=== PATIENT | female | born 1965 | race Asian ===

== ENCOUNTER 2018-08-22 07:19 | Day surgery (SDC) | payer MEDICARE, BC ==
[~2018-08-22 07:19] MED LIST: KETOROLAC TROMETHAMINE 0.45% 4 DROP/0.4 ML DROPERETTE OD PRN
[2018-08-22] MEDS ORDERED: MIDAZOLAM 2 MG/2 ML INJ ONE (07:22)
[2018-08-22] MEDS ORDERED: LIDOCAINE 1% INJ-PF (10 MG/ML) 30 ML SDV ONE (07:27)
[2018-08-22] MEDS: TROPICAMIDE 1% OPH SOLN 3 ML OD PRN ×3 (08:13→08:32)
[2018-08-22] MEDS: TETRACAINE HCL 0.5% OPH SOLN 4 ML OD PRN ×3 (08:13→08:34)
[2018-08-22] MEDS: BESIFLOXACIN HCL 0.6% OPH SUSP 5 ML BOTTLE OD PRN ×4 (08:13→08:53)
[2018-08-22] MEDS: CYCLOPENTOLATE 0.2%/PHENYLEPHRINE 1% OPH SOLN 2 ML OD PRN ×3 (08:13→08:32)
[2018-08-22] MEDS: LIDOCAINE 1%/PHENYLEPHRINE 1.5% 1 ML VIAL ONE ×2 (08:39→08:43)
[2018-08-22] MEDS: EPINEPHRINE INJ/PF 1 MG/1 ML AMPULE ONE ×2 (08:40→08:43)
[2018-08-22] MEDS: CHONDR SU A NA/HYALUR INTRAOC KIT (SURGICARE) ONE ×2 (08:41→08:43)
--- NOTE | 2018-08-23 12:17 | [facility] DISCHARGE SUMMARY E ---
[facility] Discharge Summary NAME: MARY LIAO AGE: 53Y ADMITTED: 08/22/2018 DISCHARGED: 08/22/2018 HISTORY: This is a 53-year-old female who underwent cataract extraction of the right eye. DIAGNOSIS: Cataract, right eye. HOSPITAL COURSE: She underwent surgery because she was having difficulty reading small print. DISCHARGE INSTRUCTIONS: She should be on a regular diet. No bending at her waist. No heavy lifting. She should use her Vigamox, Predforte, and Ketorolac at 3 p.m. and 8 p.m. and sleep with a rigid shield, and I will see her for a 1 day postoperative tomorrow. DICTATING PHYSICIAN: MARIANNA COSTA M.D. [id number] PHY#: [id number] 2015 ID: [id number] JOB#: [id number] ACCT: [id number] cc:MARIANNA COSTA M.D. >
--- NOTE | 2018-08-23 12:17 | [facility] OPERATIVE REPORT E ---
[facility] Operative Report NAME: MARY LIAO AGE: 53Y DATE OF SURGERY: 08/22/2018 ROOM: PREOPERATIVE DIAGNOSIS: CATARACT, RIGHT EYE. POSTOPERATIVE DIAGNOSIS: CATARACT, RIGHT EYE. OPERATION: Cataract extraction with insertion of an IOL of the right eye. SURGEON: MARIANNA COSTA M.D. ANESTHESIA: Topical. PROCEDURE: After obtaining appropriate consent, the patient's right eye was prepped and draped in sterile fashion as well as the surgeon in a sterile manner and cataract surgery was started. First a paracentesis blade was used to make a side-port incision. Viscoelastic was used to inflate the anterior chamber. Next a 2.4 mm incision was made with a 2.4 mm blade, clear corneal temporally. A continuous capsulorrhexis was made using a cystotome and Utrata forceps. Following this hydrodissection was carried out to make the lens fully loose and mobile and it was rotated 90 degrees. Following this, a zupsmj-xbs-dwjdehk technique was used to phacoemulsify the lens with a CDE of 6.99. The remaining cortex was removed with irrigation/aspiration. Provisc was instilled into the capsular bag to inflate the bag. A SN60WF, 14.0 diopter lens was placed. The remaining viscoelastic material was removed with irrigation/aspiration. Following this, the incision was found to be watertight. Besivance was instilled into the eye and a protective shield was placed over the eye. The patient returned to the postoperative recovery in stable condition. DICTATING PHYSICIAN: AMRIANNA COSTA M.D. [id number] PHY#: [id number] 2015 ID: [id number] JOB#: [id number] ACCT: [id number] cc:MARIANNA COSTA M.D. >
== END 2018-08-22 09:41 | disposition home or self-care (01) ==
LOC: SC 07:19
PROVIDERS: ATTEND Internal Medicine
DX: H25.813 Combined forms of age-related cataract, bilateral (principal); H53.022 Refractive amblyopia, left eye; H04.123 Dry eye syndrome of bilateral lacrimal glands; E11.9 Type 2 diabetes mellitus without complications; E78.00 Pure hypercholesterolemia, unspecified; J45.909 Unspecified asthma, uncomplicated; M19.90 Unspecified osteoarthritis, unspecified site; Z87.891 Personal history of nicotine dependence; K21.9 Gastro-esophageal reflux disease without esophagitis; I48.91 Unspecified atrial fibrillation; I11.0 Hypertensive heart disease with heart failure; I50.9 Heart failure, unspecified; Z79.899 Other long term (current) drug therapy; Z79.82 Long term (current) use of aspirin; Z79.51 Long term (current) use of inhaled steroids; Z95.0 Presence of cardiac pacemaker; Z79.4 Long term (current) use of insulin
CPT/HCPCS: 66984; 82962; V2632; J2250; J3490 ×2; A9270; J0171; J2370; 142

== ENCOUNTER 2018-09-19 07:52 | Day surgery (SDC) | payer MEDICARE, BC ==
[~2018-09-19 07:52] MED LIST changes: -KETOROLAC TROMETHAMINE 0.45% 4 DROP/0.4 ML DROPERETTE OD PRN; +KETOROLAC TROMETHAMINE 0.45% 4 DROP/0.4 ML DROPERETTE OS PRN; +LIDOCAINE 1% INJ-PF (10 MG/ML) 30 ML SDV ONE
[2018-09-19] MEDS: TROPICAMIDE 1% OPH SOLN 3 ML OS PRN ×3 (08:28→08:51)
[2018-09-19] MEDS: CYCLOPENTOLATE 0.2%/PHENYLEPHRINE 1% OPH SOLN 2 ML OS PRN ×3 (08:28→08:51)
[2018-09-19] MEDS: BESIFLOXACIN HCL 0.6% OPH SUSP 5 ML BOTTLE OS PRN ×4 (08:29→09:23)
[2018-09-19] MEDS: TETRACAINE HCL 0.5% OPH SOLN 4 ML OS PRN ×3 (08:30→09:00)
[2018-09-19] MEDS ORDERED: MIDAZOLAM 2 MG/2 ML INJ ONE (08:46)
[2018-09-19] MEDS ORDERED: FENTANYL CITRATE INJ/PF 100 MCG/2 ML AMPUL ONE (08:47)
[2018-09-19] MEDS: EPINEPHRINE INJ/PF 1 MG/1 ML AMPULE ONE ×2 (09:11)
[2018-09-19] MEDS: LIDOCAINE 1%/PHENYLEPHRINE 1.5% 1 ML VIAL ONE ×2 (09:11)
[2018-09-19] MEDS: CHONDR SU A NA/HYALUR INTRAOC KIT (SURGICARE) ONE ×2 (09:11)
[2018-09-19] MEDS: DORZOLAMIDE HCL 2%/TIMOLOL MALEAT 0.5% OPH SOLN 10 ML OS PRN ×2 (09:23)
--- NOTE | 2018-09-19 21:13 | [facility] OPERATIVE REPORT E ---
[facility] Operative Report NAME: MARY LIAO AGE: 53Y DATE OF SURGERY: 09/19/2018 ROOM: PREOPERATIVE DIAGNOSIS: CATARACT, LEFT EYE. POSTOPERATIVE DIAGNOSIS: CATARACT, LEFT EYE. OPERATION: Cataract extraction with insertion of an IOL of the left eye. SURGEON: MARIANNA COSTA M.D. ANESTHESIA: Topical. PROCEDURE: After obtaining appropriate consent, the patient's left eye was prepped and draped in sterile fashion as well as the surgeon in a sterile manner and cataract surgery was started. First a paracentesis blade was used to make a side-port incision. Viscoelastic was used to inflate the anterior chamber. Next a 2.4 mm incision was made with a 2.4 mm blade, clear corneal temporally. A continuous capsulorrhexis was made using a cystotome and Utrata forceps. Following this hydrodissection was carried out to make the lens fully loose and mobile and it was rotated 90 degrees. Following this, a fcwjfp-njj-vvvwvma technique was used to phacoemulsify the lens with a CDE of 7.43. The remaining cortex was removed with irrigation/aspiration. Provisc was instilled into the capsular bag to inflate the bag. A SN60WF, 13.5 diopter lens was placed. The remaining viscoelastic material was removed with irrigation/aspiration. Following this, the incision was found to be watertight. Besivance was instilled into the eye and a protective shield was placed over the eye. The patient returned to the postoperative recovery in stable condition. DICTATING PHYSICIAN: MARIANNA COSTA M.D. [id number] PHY#: [id number] ID: [id number] JOB#: [id number] ACCT: [id number] cc:MARIANNA COSTA M.D. >
--- NOTE | 2018-09-19 21:18 | [facility] DISCHARGE SUMMARY E ---
[facility] Discharge Summary NAME: MARY LIAO AGE: 53Y ADMITTED: 09/19/2018 DISCHARGED: 09/19/2018 FINAL DIAGNOSIS: Cataract, left eye. HOSPITAL COURSE: This is a 53-year-old female who underwent cataract extraction of the left eye. Underwent surgery because she was having difficulty seeing road signs and words on the television. DISCHARGE INSTRUCTIONS: She should be on a regular diet. No bending at her waist, no heavy lifting. She should use Vigamox, ketorolac and Pred-Forte at 3:00 p.m. and 8:00 p.m. Sleep with a rigid shield. I will see her for a 1-day postoperative tomorrow. DICTATING PHYSICIAN: MARIANNA COSTA M.D. [id number] PHY#: [id number] ID: [id number] JOB#: [id number] ACCT: [id number] cc:MARIANNA COSTA M.D. >
== END 2018-09-19 10:04 | disposition home or self-care (01) ==
LOC: SC 07:52
PROVIDERS: ATTEND Internal Medicine
DX: H25.812 Combined forms of age-related cataract, left eye (principal); Z96.1 Presence of intraocular lens; E11.9 Type 2 diabetes mellitus without complications; I11.0 Hypertensive heart disease with heart failure; I50.9 Heart failure, unspecified; K21.9 Gastro-esophageal reflux disease without esophagitis; G47.30 Sleep apnea, unspecified; Z79.82 Long term (current) use of aspirin; Z79.899 Other long term (current) drug therapy; Z79.51 Long term (current) use of inhaled steroids; Z95.0 Presence of cardiac pacemaker
CPT/HCPCS: 66984; 82962; V2632; J2250; J3490 ×2; A9270; J0171; J3010; J2370; 142

== ENCOUNTER 2020-02-04 14:32 | Emergency (ER) | payer MEDICARE, BC ==
--- NOTE | 2020-02-04 14:42 | ER Document Report ---
ED Medical Screen (RME) - General Chief Complaint: S/S of Possible Stroke Stated Complaint: LEFT LEG NUMBNESS Time Seen by Provider: 02/04/20 14:38 Primary Care Provider: LUCRECIA CHAVEZ MD [Primary Care Provider] - Follow up as needed Notes: Patient is a 54-year-old female with a history of diabetes who presents to the emergency department with a chief complaint of right leg numbness. Patient states that her symptoms started yesterday afternoon. States that the numbness has gotten progressively worse throughout the day. She woke up this morning and still had the right leg numbness. Exam: Normal strength in bilateral upper and lower extremities. I have greeted and performed a rapid initial assessment of this patient. A comprehensive ED assessment and evaluation of the patient, analysis of test res ults and completion of medical decision making process will be conducted by an additional ED providers. TRAVEL OUTSIDE OF THE [place] IN LAST 30 DAYS: No - Related Data Allergies/Adverse Reactions: No Known Allergies Allergy (Verified 08/22/18 08:16) Past Medical History - Past Medical History Cardiac Medical History: Reports: Hx Congestive Heart Failure, Hx Hypercholesterolemia, Hx Hypertension Denies: Hx Heart Attack Pulmonary Medical History: Reports: Hx Asthma, Hx Pneumonia Denies: Hx Tuberculosis Neurological Medical History: Denies: Hx Cerebrovascular Accident, Hx Seizures GI Medical History: Reports: Hx Gastroesophageal Reflux Disease. Denies: Hx Hepatitis, Hx Hiatal Hernia, Hx Ulcer Psychiatric Medical History: Reports: Hx Depression Infectious Medical History: Denies: Hx Hepatitis Past Surgical History: Reports: Hx Hysterectomy, Hx Pacemaker. Denies: Hx Mastectomy, Hx Open Heart Surgery - Immunizations Hx Diphtheria, Pertussis, Tetanus Vaccination: No Doctor's Discharge - Discharge Referrals: LUCRECIA CHAVEZ MD [Primary Care Provider] - Follow up as needed
--- NOTE | 2020-02-04 15:30 | RADIOLOGY REPORT (SQ) ---
EXAM DESCRIPTION: CT HEAD WITHOUT IMAGES COMPLETED DATE/TIME: 02/04/2020 3:03 pm REASON FOR STUDY: right leg numbness COMPARISON: None. TECHNIQUE: Axial images acquired through the brain without intravenous contrast. Images reviewed wi th bone, brain and subdural windows. Images stored on PACS. All CT scanners at this facility use dose modulation, iterative reconstruction, and/or weight based d osing when appropriate to reduce radiation dose to as low as reasonably achievable (ALARA). [facility]: Dose Right [facility]: CareDose [facility]: Dose Right [facility]: Teradose 4D [facility]: [employer] RADIATION DOSE: CT Rad equipment meets quality standard of care and radiation dose reduction techniq ues were employed. CTDIvol: 53.2 mGy. DLP: 1097 mGy-cm. mGy. LIMITATIONS: None. FINDINGS: VENTRICLES: Normal size and contour. CEREBRUM: No masses. No hemorrhage. No midline shift. No evidence for acute infarction. Normal gra y/white matter differentiation. No areas of low density in the white matter. CEREBELLUM: No masses. No hemorrhage. No alteration of density. No evidence for acute infarction. EXTRAAXIAL SPACES: No fluid collections. No masses. ORBITS AND GLOBE: No intra- or extraconal masses. Normal contour of globe without masses. CALVARIUM: No fracture. PARANASAL SINUSES: No fluid or mucosal thickening. SOFT TISSUES: No mass or hematoma. OTHER: No other significant finding. IMPRESSION: NORMAL BRAIN CT WITHOUT CONTRAST. EVIDENCE OF ACUTE STROKE: NO. COMMENT: Quality ID # [id number]: Final reports with documentation of one or more dose reduction techniques (e.g., Automated exposure control, adjustment of the mA and/or kV according to patient size, use of iterative reconstruction technique) TECHNICAL DOCUMENTATION: JOB ID: [id number] 2010 [employer]- All Rights Reserved Reading location - IP/workstation name: [email or web address]
[2020-02-04 15:44] LABS: ABSOLUTE BASOPHILS # (AUTO) 0.1 10^3/uL (0.0-0.2); ABSOLUTE EOSINOPHILS # (AUTO) 0.1 10^3/uL (0.0-0.6); ABSOLUTE LYMPHOCYTES (AUTO) 2.3 10^3/uL (0.5-4.7); ABSOLUTE MONOCYTES (AUTO) 0.5 10^3/uL (0.1-1.4); ABSOLUTE NEUT (AUTO) 4.5 10^3/uL (1.7-8.2); BASOPHILS % (AUTO) 0.8 % (0-2); EOSINOPHILS % (AUTO) 1.9 % (0-6); HEMATOCRIT 41.3 % (36.0-47.0); HEMOGLOBIN 13.6 g/dL (12.0-15.5); LYMPHOCYTES % (AUTO) 30.4 % (13-45); MEAN CORPUSCULAR HEMOGLOBIN 29.8 pg (27.0-33.4); MEAN CORPUSCULAR VOLUME 90 fl (80-97); MONOCYTES % (AUTO) 6.8 % (3-13); PLATELET COUNT 249 10^3/uL (150-450); RED BLOOD COUNT 4.57 10^6/uL (3.72-5.28); RED CELL DISTRIBUTION WIDTH 13.6 % (11.5-14.0); SEGMENTED NEUTROPHILS % (AUTO) 60.1 % (42-78); TOTAL CELLS COUNTED % (AUTO) 100 %; WHITE BLOOD COUNT 7.5 10^3/uL (4.0-10.5)
[2020-02-04 15:51] LABS: INTERNATIONAL RATION (INR) 0.86; PARTIAL THROMBOPLASTIN TIME 24.2 SEC (23.5-35.8); PROTHROMBIN TIME 11.7 SEC (11.4-15.4)
[2020-02-04 16:00] LABS: ALBUMIN 4.2 g/dL (3.5-5.0); ALKALINE PHOSPHATASE 134 U/L (38-126); ANION GAP 8 (5-19); ASPARTATE AMINO TRANSFERASE 75 U/L (14-36); BILIRUBIN,TOTAL 0.5 mg/dL (0.2-1.3); BLOOD UREA NITROGEN 18 mg/dL (7-20); CALCIUM 9.4 mg/dL (8.4-10.2); CARBON DIOXIDE 28 mmol/L (22-30); CHLORIDE 99 mmol/L (98-107); GLUCOSE 278 mg/dL (75-110); POTASSIUM 4.2 mmol/L (3.6-5.0); TOTAL PROTEIN 7.4 g/dL (6.3-8.2)
--- NOTE | 2020-02-04 17:27 | ER Document Report ---
Entered by CHRISTIANO SANCHEZ SCRIBE 02/04/20 [id number] Acting as scribe for:EMMA MATIAS MD ED General - General Chief Complaint: Weakness Stated Complaint: LEFT LEG NUMBNESS Time Seen by Provider: 02/04/20 14:38 Primary Care Provider: LUCRECIA CHAVEZ MD [Primary Care Provider] - Follow up tomorrow Mode of Arrival: Ambulatory Information source: Patient Notes: This 54 year old female patient presents to the emergency department today with complaints of left leg numbness. Patient reports that the numbness began slowly yesterday at around 5:30 pm. Patient reports that the numbness runs from below her left knee down to the toes. Patient denies any other symptoms. Patient was able to ambulate into the emergency room without any difficulty noted by the nursing staff. TRAVEL OUTSIDE OF THE [place] IN LAST 30 DAYS: No - Related Data Allergies/Adverse Reactions: No Known Allergies Allergy (Verified 02/04/20 15:59) Past Medical History - General Information source: Patient - Social History Smoking Status: Former Smoker Cigarette use (# per day): No Chew tobacco use (# tins/day): No Frequency of alcohol use: None Drug Abuse: None Lives with: Family Family History: Reviewed & Not Pertinent Patient has homicidal ideation: No - Past Medical History Cardiac Medical History: Reports: Hx Congestive Heart Failure, Hx Hypercholesterolemia, Hx Hypertension Pulmonary Medical History: Reports: Hx Asthma, Hx Pneumonia GI Medical History: Reports: Hx Gastroesophageal Reflux Disease Psychiatric Medical History: Reports: Hx Depression Past Surgical History: Reports: Hx Hysterectomy, Hx Pacemaker - Immunizations Hx Diphtheria, Pertussis, Tetanus Vaccination: No Hx Pneumococcal Vaccination: 04/27/12 Review of Systems - Review of Systems Constitutional: No symptoms reported EENT: No symptoms reported Cardiovascular: No symptoms reported Respiratory: No symptoms reported Gastrointestinal: No symptoms reported Genitourinary: No symptoms reported Female Genitourinary: No symptoms reported Musculoskeletal: No symptoms reported Skin: No symptoms reported Hematologic/Lymphatic: No symptoms reported Neurological/Psychological: See HPI, Sensory change, Numbness - left knee down to toes -: Yes All other systems reviewed and negative Physical Exam - Vital signs Vitals: Pulse Resp BP Pulse Ox 96 22 H 131/94 H 94 02/04/20 14:33 02/04/20 14:33 02/04/20 14:33 02/04/20 14:33 - Notes Notes: Physical Exam: General: Alert, appears well. HEENT: Normocephalic. Atraumatic. PERRL. Extraocular movements intact. Oroph arynx clear. Neck: Supple. Non-tender. Respiratory: No respiratory distress. Clear and equal breath sounds bilaterally. Cardiovascular: Regular rate and rhythm. Abdominal: Normal Inspection. Non-tender. No distension. Normal Bowel Sounds. Back: No gross abnormalities. Extremities: Moves all four extremities. Upper extremities: Normal inspection. Normal ROM. Lower extremities: LEFT--Good capillary refill. DPP and PTP intact. Normal motor function. Sensation to the leg seems to be intact and grossly normal. There is decreased sensation to the plantar surface, particularly to the toes. Neurological: Normal cognition. AAOx4. Normal speech. Psychological: Normal affect. Normal Mood. Skin: Warm. Dry. Normal color. Course - Re-evaluation Re-evalutation: 02/04/20 18:34 The patient's physical exam suggest this is really more of a plantar neuropathy, most likely due to her poorly controlled diabetes. The A1c today is 13.4 I did discuss the case with Dr. Chavez, he states he has a difficult time getting her to take her medications despite repeated warnings about the harm that will continue to occur if she will not take her medicines. - Vital Signs Vital signs: Temp Pulse Resp BP Pulse Ox 99.3 F 93 24 H 134/92 H 97 02/04/20 15:54 02/04/20 15:53 02/04/20 16:31 02/04/20 16:31 02/04/20 16:31 - Laboratory Result Diagrams: 02/04/20 15:26 02/04/20 15:26 Laboratory results interpreted by me: 02/04/20 02/04/20 15:26 15:26 Sodium 135.3 L Creatinine 0.43 L Glucose 278 H Hemoglobin A1c % 13.4 H AST 75 H ALT 88 H Alkaline Phosphatase 134 H - Diagnostic Test Radiology reviewed: Image reviewed, Reports reviewed - CT scan of the head is unremarkable - EKG Interpretation by Me EKG shows normal: Sinus rhythm, [place], Intervals, QRS Complexes, ST-T Waves Rate: Normal - 92 Rhythm: NSR Voltage: Consistant with LVH P Waves: LAE - Consults Dr. Chavez Time consulted: 18:28 Consulted provider: follow-up in office Discharge - Discharge Clinical Impression: Diabetic peripheral neuropathy associated with type 2 diabetes mellitus, Left leg paresthesias, Poorly controlled diabetes mellitus Condition: Stable Disposition: HOME, SELF-CARE Additional Instructions: Neuropathy Your symptoms are due to neuropathy. Neuropathy is nerve damage. There are many causes, including diabetes, immune disease, alcohol, blood vessel disease, and vitamin deficiency. The usual symptoms are pain and numbness. Neuropathy can occur anywhere, but it's most likely in the "longest" nerves. That's why the feet are most often affected. Sometimes the nerve damage can heal. But if the symptoms have lasted more than a few months, the damage is permanent. To avoid further damage, treat your underlying health problems carefully. If you have diabetes, keep the blood sugar as normal as possible. Avoid alcohol. Treat high blood pressure and high cholesterol. Treating chronic pain can be a problem. Obviously, you don't want to become addicted to pain medicine. Work closely with your doctor on pain management. Your options include antiinflammatory medicine, anti seizure me dicine, antidepressants, and pain clinic management. Contact the doctor if there is a significant change. Your examination today suggest that the numbness you are feeling in your left foot is due to diabetic peripheral neuropathy. Your blood sugars are poorly controlled and this is worsening the neuropathy problem. Dr. Chavez wants you to follow-up with him in the office in the next 1 to 2 days to review your lab work and findings from today. RETURN TO THE EMERGENCY ROOM IF ANY NEW OR WORSENING SYMPTOMS. Referrals: LUCRECIA CHAVEZ MD [Primary Care Provider] - Follow up tomorrow I personally performed the services described in the documentation, reviewed and edited the documentation which was dictated to the scribe in my presence, and it accurately records my words and actions.
--- NOTE | 2020-02-04 18:35 | EKG REPORT ---
SEVERITY:- ABNORMAL ECG - SINUS RHYTHM PROBABLE LEFT ATRIAL ABNORMALITY LEFT VENTRICULAR HYPERTROPHY : Confirmed by: Jose Zhang MD 04-Feb-2020 18:34:52
[2020-02-04 19:11] VITALS: BP 135/91
== END 2020-02-04 19:22 | disposition home or self-care (01) ==
LOC: ER 14:32
DX: E11.42 Type 2 diabetes mellitus with diabetic polyneuropathy (principal); R20.2 Paresthesia of skin; R20.0 Anesthesia of skin; I11.0 Hypertensive heart disease with heart failure; I50.9 Heart failure, unspecified; E78.00 Pure hypercholesterolemia, unspecified; Z90.710 Acquired absence of both cervix and uterus; Z95.0 Presence of cardiac pacemaker
CPT/HCPCS: 36415; 70450; 80053; 83036; 85025; 85610; 85730; 93005; 93010; 99285

== ENCOUNTER → 2020-06-28 | Outpatient (CLI) | payer MEDICARE, BC ==
--- NOTE | 2020-06-28 15:49 | RADIOLOGY REPORT (SQ) ---
EXAM DESCRIPTION: CHEST PA/LATERAL IMAGES COMPLETED DATE/TIME: 06/28/2020 3:19 pm REASON FOR STUDY: COUGH COMPARISON: 04/26/2012 EXAM PARAMETERS: NUMBER OF VIEWS: two views TECHNIQUE: Digital Frontal and Lateral radiographic views of the chest acquired. RADIATION DOSE: NA LIMITATIONS: Motion artifact limits the examination. FINDINGS: LUNGS AND PLEURA: Chronic right upper lung zone scarring or atelectasis. No acute pulmon shaan consolidation. No pneumothorax or pleural effusion. MEDIASTINUM AND HILAR STRUCTURES: Stable appearance of fullness in the right hilar region likely rel ated to prominent right pulmonary artery. HEART AND VASCULAR STRUCTURES: Cardiomegaly and pulmonary vascular redistribution (cephalization). Heart normal size. No evidence for failure. BONES: No acute findings. HARDWARE: Interval placement of left sided cardiac pacemaker with the tip of the electrode leads in the right atrium and right ventricle. OTHER: No other significant finding. IMPRESSION: 1. Since the prior study dated 04/26/2012, interval placement of left-sided cardiac pacem raman. 2. Chronic stable right upper lung zone scarring or atelectasis. No acute pulmonary findings. 3. Cardiomegaly unchanged finding. TECHNICAL DOCUMENTATION: JOB ID: [id number] 2010 [employer]- All Rights Reserved Reading location - IP/workstation name: [email or web address]
== END ==
LOC: OD 14:35
PROVIDERS: ATTEND Internal Medicine
DX: R05 Cough (principal)
CPT/HCPCS: 71046